=== PATIENT | male | born 1995 | race Caucasian/White ===

== ENCOUNTER 2023-01-28 19:06 | Outpatient (RCR) | payer OTHER, SELFPAY | END 2023-01-28 23:59 | disposition home or self-care (01) | LOC: RPT 19:06 | PROVIDERS: ATTENDING PHYSICIAN Physician Assistant; FAMILY PHYSICIAN Family Medicine | DX: M54.50 Low back pain, unspecified (principal); Z73.6 Limitation of activities due to disability | CPT/HCPCS: 97110; 97112; 97140 ==

== ENCOUNTER → 2023-08-13 11:13 | Outpatient (REF) | payer OTHER, SELFPAY | LOC: RAD 11:13 | PROVIDERS: ATTENDING PHYSICIAN Physician Assistant; FAMILY PHYSICIAN Family Medicine | DX: T15.90XA Foreign body on external eye, part unspecified, unspecified eye, initial encounter (principal) | CPT/HCPCS: 70030 ==